=== PATIENT | female | born 1990 | race American Indian/Alaskan Native ===

== ENCOUNTER 2019-08-30 21:03 | Emergency (ER) | payer OTHER ==
[2019-08-30] MEDS ORDERED: KETOROLAC 60 MG/2 ML INJ IM ONE (21:28)
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
[2019-08-31 00:18] VITALS: BP 132/66
== END 2019-08-31 00:18 | disposition home or self-care (01) ==
LOC: ED 21:03
DX: S40.022A Contusion of left upper arm, initial encounter (principal); Z88.1 Allergy status to other antibiotic agents; Z79.899 Other long term (current) drug therapy; V87.7XXA Person injured in collision between other specified motor vehicles (traffic), initial encounter; Y93.89 Activity, other specified; Y92.488 Other paved roadways as the place of occurrence of the external cause; Y99.8 Other external cause status
CPT/HCPCS: 71045; 73030; 73080; 96372; 99283; J1885